=== PATIENT | female | born 1965 | race Caucasian/White ===

== ENCOUNTER 2017-03-12 12:23 | Emergency (ER) | payer BC ==
[2017-03-12 13:51] VITALS: BP 107/77
--- NOTE | 2017-03-12 13:51 | UC ---
Throat Pain/Nasal [place] HPI - HPI Summary HPI Summary: 51 y/o female presents to the urgent care c/o sore throat, b/l ear pain, dry cough, body aches since 02/26/17. Pt reports symptoms were getting better until yesterday when she developed hoarseness. She has been taking tylenol PO to alleviates symptoms. She states missed work last week (Wed, th, Tue) and would like a note for missing work. Pt denies SOB, chest pain, N/V/d abdominal pain. - History of Current Complaint Stated Complaint: SCRATCHY THROAT, CONGESTION Time Seen by Provider: 03/12/17 13:46 Hx Obtained From: Patient Hx Last Menstrual Period: 1 year ago. ?: No Onset/Duration: Gradual Onset, Lasting Weeks - 2 week, Still Present, Worse Since - last night Severity: Mild Pain Intensity: 2 Pain Scale Used: 0-10 Numeric Cough: Nonproductive Associated Signs & Symptoms: Positive: Sinus Discomfort, Nasal Discharge, Fever - Epiglottits Risk Factors Epiglottis Risk Factors: Negative - Allergies/Home Medications Allergies/Adverse Reactions: Allergies Allergy/AdvReac Type Severity Reaction Status Date / Time Minocycline Allergy Intermediate Difficulty Verified 03/12/17 13:52 Swallowing Penicillins Allergy Intermediate Hives Verified 03/12/17 13:52 PMH/Surg Hx/FS Hx/Imm Hx Previously Healthy: Yes Endocrine History: Hypothyroidism Other History Of: Negative For: HIV, Hepatitis B, Hepatitis C, Anticoagulant Therapy - Surgical History Surgical History: Yes Surgery Procedure, Year, and Place: csection x4. bone cyst on right wrist - Family History Known Family History: Positive: Diabetes - Social History Occupation: Employed Full-time Lives: With Family Alcohol Use: None Substance Use Type: None Smoking Status (MU): Light Every Day Tobacco Smoker Type: Cigarettes Amount Used/How Often: 1/2 ppd - Immunization History Most Recent Influenza Vaccination: no Review of Systems Constitutional: Fever Skin: Negative Eyes: Negative ENT: Sore Throat, Ear Ache, Nasal Discharge, Sinus Congestion Respiratory: Cough Cardiovascular: Negative Gastrointestinal: Negative Genitourinary: Negative Motor: Negative Neurovascular: Negative Musculoskeletal: Negative Neurological: Negative Psychological: Negative Is Patient Immunocompromised?: No All Other Systems Reviewed And Are Negative: Yes Physical Exam Triage Information Reviewed: Yes - Additional Comments VITAL SIGNS: Reviewed. GENERAL: Patient is a well developed and nourished female who is sitting comfortable in the examining table. Patient is not in any acute respiratory distress. HEAD AND FACE: No signs of trauma. No ecchymosis, hematomas or skull depressions. No sinus tenderness. EYES: PERRLA, EOMI x 2, No injected conjunctiva, no nystagmus. No photophobia. EARS: Hearing grossly intact. Ear canals and tympanic membranes are within normal limits. MOUTH: Positive pharynx with erythema,no exudates,mild palatal petechiae. no B/ L tonsillar enlargement, Uvula in midline. NECK: Supple, trachea is midline, Positive anterior cervical lymphadenopathy, no JVD, no carotid bruit, no c-spine tenderness, neck with full ROM. No meningeal signs, no Kernig's or brudzinskis signs. CHEST: Symmetric, no tenderness at palpation LUNGS: Clear to auscultation bilaterally. No wheezing or crackles. CVS: Regular rate and rhythm, S1 and S2 present, no murmurs or gallops appreciated. ABDOMEN: Soft, non-tender. No signs of distention. No rebound no guarding, and no masses palpated. Bowel sounds are normal. EXTREMITIES: FROM in all major joints, no edema, no cyanosis or clubbing. NEURO: Alert and oriented x 3. No acute neurological deficits. Speech is normal and follows commands. SKIN: Dry and warm Throat Pain/Nasal Course/Dx - Course Course Of Treatment: 51 y/o female presents to the urgent care c/o sore throat , b/l ear pain, dry cough, body aches since 02/26/17. Pt reports symptoms were getting better until yesterday when she developed hoarseness. She has been taking tylenol PO to alleviates symptoms. She states missed work last week (Tue , , Tue) and would like a note for missing work. Pt denies SOB, chest pain, N/V/d abdominal pain.Hx obtained. Pt with a laryngitis on examination. Rapid strep ordered, result: negative. Pt with Laryngitis and URI. Pt Rx ibuprofen PO, . Tessalon tabs PO to alleviate symptoms of pain and swelling. Advised on hand washing to avoid spreading. Pt advised to rest her voice, eat well and avoid strenuous exercise. If symptoms do not improve or worsen advised to return to the urgent care or f/u with her PCP for further evaluation and treatment. Pt understood and agreed with plan of care. - Differential Dx/Diagnosis Differential Diagnosis/HQI/PQRI: Influenza, Laryngitis, Otitis Media, Pharyngitis, Sinusitis, URI Provider Diagnoses: 1-Laryngitis. 2- URI Discharge - Discharge Plan Condition: Stable Disposition: HOME Prescriptions: Benzonatate CAP* [Tessalon 100 MG CAP*] 100 mg PO TID #15 cap Ibuprofen TAB* [Motrin TAB* 600 MG] 600 mg PO Q8H PRN #20 tab PRN Reason: Sore Throat Patient Education Materials: Laryngitis (ED), Cold Symptoms (ED) Forms: *Work Release Referrals: [facility] [place] [facility] [Outside] No Primary Care Phys,NOPCP [Primary Care Provider] - Additional Instructions: 1-Please take ibuprofen PO q6-8hrs prn as instructed after meals to alleviate pain and swelling. Increase fluid intake, eat well, rest and avoid strenuous exercise. 2- Take the Tessalon tabs PO as directed to alleviate your cough 3-If symptoms do not improve or worsen please return to the urgent care or f/u with your PCP in 3 days for further evaluation and treatment.
== END 2017-03-12 14:30 | disposition home or self-care (01) ==
LOC: UCCORT 12:23
DX: J04.0 Acute laryngitis (principal); H92.03 Otalgia, bilateral; F17.210 Nicotine dependence, cigarettes, uncomplicated; Z88.1 Allergy status to other antibiotic agents; Z88.0 Allergy status to penicillin
CPT/HCPCS: 87651; 99212; G0463

== ENCOUNTER 2019-06-22 12:36 | Emergency (ER) | payer BC ==
--- NOTE | 2019-06-22 13:00 | UC ---
Skin Complaint HPI - HPI Summary HPI Summary: Pt presents with c/o "itchy" rash that began three weeks ago on mid anterior right forearm and has spread to left anterior forearm, and left mid anterior lower extremity. Pt states rash is very itchy at night. Pt denies any known contact with an allergen. Pt reports that her son has been tested for COVID and lives with her. - History of Current Complaint Chief Complaint: UCRash Time Seen by Provider: 06/22/19 12:39 Stated Complaint: RASH Hx Obtained From: Patient Hx Last Menstrual Period: 1 year ago. ?: No Onset/Duration: Sudden Onset, Lasting Weeks - 3, Still Present, Worse Since - onset Skin Exposure Onset/Duration: Weeks Ago Timing: Constant Onset Severity: Mild Current Severity: Moderate Pain Intensity: 0 Location: Discrete - bilateral anterior forearms and left anterior lower extremity. Character: Pruritus, Redness, Raised Aggravating Factor(s): Nothing Alleviating Factor(s): Nothing Associated Signs & Symptoms: Positive: Rash - Allergy/Home Medications Allergies/Adverse Reactions: Allergies Allergy/AdvReac Type Severity Reaction Status Date / Time minocycline Allergy Difficulty Verified 06/22/19 12:48 Swallowing Penicillins Allergy Hives Verified 06/22/19 12:48 Home Medications: Home Medications Levothyroxine TAB* [Synthroid 150 MCG TAB*] 200 mcg PO 0800 09/10/13 [History Confirmed 06/22/19] Loratadine 10 mg PO DAILY #10 tablet 06/22/19 [Rx] Permethrin 5% CREAM* 1 applic TOPICAL SEE INSTRUCTIONS #1 tube 06/22/19 [Rx] diPHENhydraMINE PO* [Benadryl PO 25 MG TAB*] 25 mg PO Q6H PRN 06/22/19 [History Confirmed 06/22/19] predniSONE [Prednisone 20 MG TAB] 20 mg PO DAILY #5 tablet 06/22/19 [Rx] PMH/Surg Hx/FS Hx/Imm Hx Previously Healthy: Yes Other History Of: Negative For: HIV, Hepatitis B, Hepatitis C, Anticoagulant Therapy - Surgical History Surgical History: Yes Surgery Procedure, Year, and Place: csection x4. bone cyst on right wrist - Family History Known Family History: Positive: Diabetes - Social History Occupation: Unemployed - due to COVID, Employed Full-time Lives: With Family Alcohol Use: None Substance Use Type: None Smoking Status (MU): Light Every Day Tobacco Smoker Type: Cigarettes Amount Used/How Often: 1/2 ppd Length of Time of Smoking/Using Tobacco: since age 15 Have You Smoked in the Last Year: Yes - Immunization History Most Recent Influenza Vaccination: no Review of Systems All Other Systems Reviewed And Are Negative: Yes Constitutional: Positive: Negative Skin: Positive: Rash Eyes: Positive: Negative ENT: Positive: Negative Respiratory: Positive: Negative Cardiovascular: Positive: Negative Gastrointestinal: Positive: Negative Genitourinary: Positive: Negative Motor: Positive: Negative Neurovascular: Positive: Negative Musculoskeletal: Positive: Negative Neurological/Mental Status: Positive: Negative Psychological: Positive: Negative Is Patient Immunocompromised?: No Physical Exam Triage Information Reviewed: Yes Appearance: Well-Appearing Vital Signs Reviewed: Yes Eye Exam: Normal ENT Exam: Normal ENT: Positive: Hearing grossly normal Dental Exam: Normal Neck exam: Normal Musculoskeletal Exam: Normal Neurological Exam: Normal Psychological Exam: Normal Skin: Positive: Rashes - bilateral raised, pinprick, some scabbed over from pt scratching. jed tracks. bilateral anterior forearms, and left anterior lower extremity Course/Dx - Course Course Of Treatment: PPE worn and Vital signs taken by SMITHA MONTGOMERY. - Differential Diagnoses - Skin Complaint Differential Diagnoses: Cellulitis, Contact Dermatitis, Scabies, Urticaria - Diagnoses Provider Diagnosis: Itchy skin, Localized pruritus Discharge ED - Sign-Out/Discharge Documenting (check all that apply): Patient Departure All imaging exams completed and their final reports reviewed: No Studies - Discharge Plan Condition: Stable Disposition: HOME Prescriptions: Loratadine 10 mg PO DAILY #10 tablet Permethrin 5% CREAM* 1 applic TOPICAL SEE INSTRUCTIONS #1 tube predniSONE [Prednisone 20 MG TAB] 20 mg PO DAILY #5 tablet Patient Education Materials: Acute Rash (ED), Itchy Skin (ED) Referrals: [facility] [place] [facility] [Outside] - If Needed No Primary Care Phys,NOPCP [Primary Care Provider] - - Billing Disposition and Condition Condition: STABLE Disposition: Home
[2019-06-22 13:25] VITALS: BP 118/76
== END 2019-06-22 13:27 | disposition home or self-care (01) ==
LOC: UCCORT 12:36
DX: R21 Rash and other nonspecific skin eruption (principal); L29.9 Pruritus, unspecified; Z88.1 Allergy status to other antibiotic agents; Z88.0 Allergy status to penicillin; F17.210 Nicotine dependence, cigarettes, uncomplicated
CPT/HCPCS: 99212; G0463